=== PATIENT | female | born 1975 | race Caucasian/White ===

== ENCOUNTER → 2023-01-19 | Outpatient (CLI) | payer OTHER ==
[~2023-01-19] MED LIST: CEPH500 PO; CETI5 PO; CLIN300 PO; CYCL10 PO; DIAZ5 PO; FAMO20 PO; HYDACE10B PO; HYDACE5 PO; IBUP800 PO; MULVITA; NAPR500 PO; OXYACE5T PO; PRED20 PO; RXOXYACE PO
[2023-01-19 20:11] LABS: BASOPHILS ABSOLUTE AUTO 0.09 K/mm3 (0.00-0.23); BASOPHILS PERCENT AUTO 1 % (0-2); EOSINOPHILS ABSOLUTE AUTO 0.34 K/mm3 (0.00-0.68); EOSINOPHILS PERCENT AUTO 3 % (0-6); Hematocrit 47.9 % (33.0-51.0); Hemoglobin 16.4 g/dL (11.5-16.0); IMMATURE GRAN ABSOLUTE AUTO 0.02 K/mm3 (0.00-0.10); IMMATURE GRAN PERCENT AUTO 0 % (0-1); LYMPHOCYTES ABSOLUTE AUTO 2.86 K/mm3 (0.84-5.20); LYMPHOCYTES PERCENT AUTO 29 % (21-46); MONOCYTES ABSOLUTE AUTO 0.73 K/mm3 (0.16-1.47); MONOCYTES PERCENT AUTO 7 % (4-13); Mean Corpuscular HGB 36.2 pg (26.0-34.0); Mean Corpuscular HGB Conc 34.2 g/dL (31.5-36.5); Mean Corpuscular Volume 106 fL (80-100); Mean Platelet Volume 11.7 fL (9.1-12.4); NEUTROPHILS ABSOLUTE AUTO 5.92 K/mm3 (1.96-9.15); NEUTROPHILS PERCENT AUTO 60 % (41-73); Platelet Count 193 K/mm3 (150-400); RDW Coefficient Variation 12.7 % (11.7-14.2); RDW Standard Deviation 49.8 fL (35.1-46.3); Red Blood Cell Count 4.53 M/mm3 (3.80-5.20); White Blood Cell Count 9.96 K/mm3 (4.00-11.30)
[2023-01-19 22:49] LABS: Albumin, Blood 3.4 g/dL (3.4-5.0); Albumin/Globulin Ratio 0.8 (0.8-1.8); Bilirubin, Total 0.5 mg/dL (0.1-1.0); Bun/Creatinine Ratio 19.1 (12.0-20.0); Creatinine, Blood 0.73 mg/dL (0.40-1.00); Globulin, Blood 4.4 g/dL (2.2-4.0); Potassium, Blood 4.4 mmol/L (3.5-5.5); Total Protein, Blood 7.8 g/dL (6.4-8.2)
== END | disposition home or self-care (01) ==
LOC: LAB SHORT 16:18
PROVIDERS: Nurse Practitioner Family
DX: I10 Essential (primary) hypertension (principal)
CPT/HCPCS: 80053; 85025

== ENCOUNTER 2024-01-23 18:02 | Emergency (ER) | payer OTHER ==
[~2024-01-23] VITALS: Ht 160 cm; Wt 124.7 kg
[2024-01-23 18:12] VITALS: BP 177/105
[2024-01-23 19:32] LABS: BASOPHILS ABSOLUTE AUTO 0.14 K/mm3 (0.00-0.23); BASOPHILS PERCENT AUTO 1 % (0-2); EOSINOPHILS ABSOLUTE AUTO 0.36 K/mm3 (0.00-0.68); EOSINOPHILS PERCENT AUTO 2 % (0-6); Hematocrit 46.1 % (33.0-51.0); Hemoglobin 16.1 g/dL (11.5-16.0); IMMATURE GRAN ABSOLUTE AUTO 0.04 K/mm3 (0.00-0.10); IMMATURE GRAN PERCENT AUTO 0 % (0-1); LYMPHOCYTES ABSOLUTE AUTO 4.85 K/mm3 (0.84-5.20); LYMPHOCYTES PERCENT AUTO 32 % (21-46); MONOCYTES ABSOLUTE AUTO 1.06 K/mm3 (0.16-1.47); MONOCYTES PERCENT AUTO 7 % (4-13); Mean Corpuscular HGB 35.3 pg (26.0-34.0); Mean Corpuscular HGB Conc 34.9 g/dL (31.5-36.5); Mean Corpuscular Volume 101 fL (80-100); Mean Platelet Volume 10.5 fL (9.1-12.4); NEUTROPHILS ABSOLUTE AUTO 8.51 K/mm3 (1.96-9.15); NEUTROPHILS PERCENT AUTO 57 % (41-73); Platelet Count 170 K/mm3 (150-400); RDW Coefficient Variation 12.5 % (11.7-14.2); RDW Standard Deviation 46.8 fL (35.1-46.3); Red Blood Cell Count 4.56 M/mm3 (3.80-5.20); White Blood Cell Count 14.96 K/mm3 (4.00-11.30)
[2024-01-23 19:52] LABS: Albumin, Blood 3.5 g/dL (3.4-5.0); Albumin/Globulin Ratio 0.8 (0.8-1.8); Bilirubin, Total 0.4 mg/dL (0.1-1.0); Bun/Creatinine Ratio 17.9 (12.0-20.0); Calcium, Blood 8.9 mg/dL (8.5-10.1); Creatinine, Blood 0.78 mg/dL (0.40-1.00); Globulin, Blood 4.6 g/dL (2.2-4.0); Potassium, Blood 3.9 mmol/L (3.5-5.5); Total Protein, Blood 8.1 g/dL (6.4-8.2)
[2024-01-23 20:13] LABS: Source, Urine Clean Catch
[2024-01-23 20:15] LABS: Bilirubin, Urine Neg (Neg); Blood, Urine 5+ (Neg); Glucose Qualitative, Urine Neg (Neg); Ketones, Urine Neg (Neg); Leukocyte Esterase, Urine 3+ (Neg); Nitrite, Urine Pos (Neg); Protein, Urine 3+ (Neg); Urobilinogen, Urine NORM (Normal)
[2024-01-23 20:27] LABS: Appearance, Urine Cloudy (Clear); Color, Urine Yellow (P-Yellow); White Blood Cells, Urine 50-100 /hpf (0-5)
[2024-01-23 20:28] LABS: Bacteria Many /hpf; Squamous Epithelial Cells Mod /hpf (Few)
[2024-01-24] MEDS ORDERED: CEPH500 PO (00:40)
== END 2024-01-23 20:07 | disposition home or self-care (01) ==
LOC: ER 18:02
PROVIDERS: Physician Assistant; Student in an Organized Health Care Education/Training Program
DX: N39.0 Urinary tract infection, site not specified (principal); Z88.5 Allergy status to narcotic agent; Z88.0 Allergy status to penicillin; Z88.1 Allergy status to other antibiotic agents
CPT/HCPCS: 80053; 81001; 85025; 87077; 87086; 87186; 93971; 99284-25

== ENCOUNTER → 2024-04-08 | Outpatient (CLI) | payer OTHER ==
[2024-04-08 20:08] LABS: BASOPHILS ABSOLUTE AUTO 0.17 K/mm3 (0.00-0.23); BASOPHILS PERCENT AUTO 2 % (0-2); EOSINOPHILS ABSOLUTE AUTO 0.33 K/mm3 (0.00-0.68); EOSINOPHILS PERCENT AUTO 3 % (0-6); Hematocrit 47.2 % (33.0-51.0); IMMATURE GRAN ABSOLUTE AUTO 0.04 K/mm3 (0.00-0.10); IMMATURE GRAN PERCENT AUTO 0 % (0-1); LYMPHOCYTES ABSOLUTE AUTO 3.29 K/mm3 (0.84-5.20); LYMPHOCYTES PERCENT AUTO 29 % (21-46); MONOCYTES ABSOLUTE AUTO 0.84 K/mm3 (0.16-1.47); MONOCYTES PERCENT AUTO 7 % (4-13); Mean Corpuscular HGB 34.6 pg (26.0-34.0); Mean Corpuscular HGB Conc 33.9 g/dL (31.5-36.5); Mean Corpuscular Volume 102 fL (80-100); Mean Platelet Volume 11.5 fL (9.1-12.4); NEUTROPHILS ABSOLUTE AUTO 6.78 K/mm3 (1.96-9.15); NEUTROPHILS PERCENT AUTO 59 % (41-73); Platelet Count 167 K/mm3 (150-400); RDW Coefficient Variation 12.4 % (11.7-14.2); RDW Standard Deviation 47.3 fL (35.1-46.3); Red Blood Cell Count 4.63 M/mm3 (3.80-5.20); White Blood Cell Count 11.45 K/mm3 (4.00-11.30)
[2024-04-08 20:17] LABS: Albumin, Blood 3.5 g/dL (3.4-5.0); Albumin/Globulin Ratio 0.8 (0.8-1.8); Bilirubin, Total 0.4 mg/dL (0.1-1.0); Bun/Creatinine Ratio 18.6 (12.0-20.0); Calcium, Blood 9.4 mg/dL (8.5-10.1); Creatinine, Blood 0.64 mg/dL (0.40-1.00); Globulin, Blood 4.4 g/dL (2.2-4.0); Potassium, Blood 4.2 mmol/L (3.5-5.5); Total Protein, Blood 7.9 g/dL (6.4-8.2)
[2024-04-08 20:21] LABS: CHOL/HDL RATIO 3.9; Cholesterol 200 mg/dL (50-200); HDL Cholesterol 51 mg/dL (>39); LDL/HDL RATIO 2.3; Low Density Lipoprotein Chol 118 mg/dL (0-110); Triglycerides 157 mg/dL (30-160); Very Low Density Lipoprot Chol 31 mg/dL (6-32)
== END ==
LOC: LAB 17:00 → LAB SHORT 17:00
PROVIDERS: Nurse Practitioner Family
DX: I10 Essential (primary) hypertension (principal); R73.03 Prediabetes
CPT/HCPCS: 80053; 80061; 83036; 85025

== ENCOUNTER 2024-11-07 23:48 | Emergency (ER) | payer OTHER ==
[~2024-11-07] VITALS: Ht 172.7 cm; Wt 122.5 kg
[2024-11-07 23:58] VITALS: BP 164/103
[2024-11-08] MEDS ORDERED: DIAZ2 PO (02:44)
[2024-11-08] MEDS ORDERED: LIDO700A20 TOP (02:44)
[2024-11-08] MEDS ORDERED: Lidocaine 4% 1 Patch TOP ONE (02:45)
[2024-11-08] MEDS ORDERED: Ketorolac Tromethamine 30mg Vial IM ONE (02:45)
[2024-11-08] MEDS ORDERED: Diazepam 5 MG Tab PO ONE (02:45)
== END 2024-11-08 02:55 | disposition home or self-care (01) ==
LOC: ER 23:48
DX: S13.9XXA Sprain of joints and ligaments of unspecified parts of neck, initial encounter (principal); R63.5 Abnormal weight gain; V49.00XA Driver injured in collision with unspecified motor vehicles in nontraffic accident, initial encounter; Y92.481 Parking lot as the place of occurrence of the external cause; Z88.0 Allergy status to penicillin; Z88.1 Allergy status to other antibiotic agents; Z88.5 Allergy status to narcotic agent; Z79.899 Other long term (current) drug therapy
CPT/HCPCS: 96374; 99282-25; A9270; J1885

== ENCOUNTER → 2025-04-07 | Outpatient (CLI) | payer OTHER ==
[~2025-04-07] MED LIST changes: +DIAZ2 PO; +LIDO700A20 TOP
[2025-04-07 16:16] LABS: CHOL/HDL RATIO 3.5; Cholesterol 192 mg/dL (50-200); Follicle Stimulating Hormone 41.30 mIU/ml; HDL Cholesterol 55 mg/dL (>39); LDL/HDL RATIO 1.9; Low Density Lipoprotein Chol 105 mg/dL (0-110); Triglycerides 160 mg/dL (30-160); Very Low Density Lipoprot Chol 32 mg/dL (6-32)
[2025-04-07 16:45] LABS: Creatinine, Urine Random 79.8 mg/dL (27.00-270.00); Protein, Urine Random 31.2 mg/dL (0.0-11.9); Protein/Creat Ratio, Ur Random 0.4
== END ==
LOC: LAB 14:30 → LAB SHORT 14:30
PROVIDERS: General Practice
DX: I10 Essential (primary) hypertension (principal); N95.1 Menopausal and female climacteric states
CPT/HCPCS: 80061; 82570; 83001; 83002; 84156

== ENCOUNTER 2025-07-01 18:00 | Emergency (ER) | payer OTHER ==
[~2025-07-01] VITALS: Ht 170.2 cm; Wt 117.9 kg
[2025-07-01 19:16] LABS: BASOPHILS ABSOLUTE AUTO 0.23 K/mm3 (0.00-0.23); BASOPHILS PERCENT AUTO 2 % (0-2); EOSINOPHILS ABSOLUTE AUTO 0.36 K/mm3 (0.00-0.68); EOSINOPHILS PERCENT AUTO 3 % (0-6); Hematocrit 39.5 % (33.0-51.0); Hemoglobin 13.7 g/dL (11.5-16.0); IMMATURE GRAN ABSOLUTE AUTO 0.02 K/mm3 (0.00-0.10); IMMATURE GRAN PERCENT AUTO 0 % (0-1); LYMPHOCYTES ABSOLUTE AUTO 3.98 K/mm3 (0.84-5.20); LYMPHOCYTES PERCENT AUTO 35 % (21-46); MONOCYTES ABSOLUTE AUTO 0.72 K/mm3 (0.16-1.47); MONOCYTES PERCENT AUTO 6 % (4-13); Mean Corpuscular HGB Conc 34.7 g/dL (31.5-36.5); Mean Corpuscular Volume 104 fL (80-100); NEUTROPHILS ABSOLUTE AUTO 6.16 K/mm3 (1.96-9.15); NEUTROPHILS PERCENT AUTO 54 % (41-73); NRBC ABSOLUTE 0.00 K/mm3 (0.00-0.02); NRBC Auto 0.0 /100 WBC (0.0-0.2); Platelet Count 174 K/mm3 (150-400); RDW Coefficient Variation 14.9 % (11.7-14.2); RDW Standard Deviation 57.2 fL (35.1-46.3)
[2025-07-01 19:36] LABS: CORONAVIRUS COVID-19 AG Negative (NEGATIVE)
[2025-07-01 19:39] LABS: Alanine Aminotransfer (ALT/SGP 177.0 U/L (12-78); Albumin, Blood 3.2 g/dL (3.4-5.0); Albumin/Globulin Ratio 0.7 (0.8-1.8); Anion Gap 9.0 mmol/L (3-11); Aspartate Aminotrans (AST/SGOT 289.0 U/L (12-37); Bilirubin, Total 0.6 mg/dL (0.1-1.0); Blood Urea Nitrogen 16.0 mg/dL (8-24); CO2, Blood 21.0 mmol/L (21-32); Calcium, Blood 8.2 mg/dL (8.5-10.1); Chloride, Blood 112.0 mmol/L (98-108); Creatinine, Blood 0.94 mg/dL (0.40-1.00); Globulin, Blood 4.7 g/dL (2.2-4.0); Glucose, Blood 116.0 mg/dL (70-99); Potassium, Blood 3.9 mmol/L (3.5-5.5); Sodium, Blood 138.0 mmol/L (136-145); Total Protein, Blood 7.9 g/dL (6.4-8.2)
[2025-07-01 20:00] VITALS: BP 138/109
[2025-07-01] MEDS ORDERED: LORazepam 2 MG/ML 1ML Injection IV ONE (20:40)
[2025-07-02] MEDS ORDERED: PRINIVIL5 M1 (21:54)
[2025-07-02] MEDS ORDERED: Crestor40 MG (21:54)
[2025-07-02] MEDS ORDERED: IBUP800 PO (21:54)
[2025-07-02] MEDS ORDERED: KAPSPARGO SPRIN25 MG (21:54)
[2025-07-02] MEDS ORDERED: MELA3 PO (21:55)
[2025-07-02] MEDS ORDERED: ALBU90OI INH (21:55)
== END 2025-07-01 22:52 | disposition home or self-care (01) ==
LOC: ER 18:00
PROVIDERS: Student in an Organized Health Care Education/Training Program
DX: R06.02 Shortness of breath (principal); R07.9 Chest pain, unspecified; F41.9 Anxiety disorder, unspecified; R79.89 Other specified abnormal findings of blood chemistry; R10.13 Epigastric pain; R00.0 Tachycardia, unspecified; K76.0 Fatty (change of) liver, not elsewhere classified; Z53.29 Procedure and treatment not carried out because of patient's decision for other reasons; Z88.0 Allergy status to penicillin; Z88.5 Allergy status to narcotic agent; Z88.1 Allergy status to other antibiotic agents; Z79.899 Other long term (current) drug therapy
CPT/HCPCS: 71046; 74177; 80053; 83690; 83880; 84484; 85025; 85379; 87428-QW; 93005; 93010; 96374-59; 99285-25; J2060; Q9967

== ENCOUNTER 2025-07-02 20:05 | Inpatient (IN) | payer OTHER ==
[~2025-07-02] VITALS: Ht 172.7 cm; Wt 117.6 kg
[2025-07-02 20:53] LABS: Hematocrit 37.9 % (33.0-51.0); Hemoglobin 13.2 g/dL (11.5-16.0); Mean Corpuscular HGB Conc 34.8 g/dL (31.5-36.5); Mean Corpuscular Volume 104 fL (80-100); NRBC ABSOLUTE 0.00 K/mm3 (0.00-0.02); NRBC Auto 0.0 /100 WBC (0.0-0.2); Platelet Count 153 K/mm3 (150-400); RDW Coefficient Variation 15.0 % (11.7-14.2); RDW Standard Deviation 58.3 fL (35.1-46.3)
[2025-07-02 21:12] LABS: Alanine Aminotransfer (ALT/SGP 199.0 U/L (12-78); Albumin, Blood 3.3 g/dL (3.4-5.0); Albumin/Globulin Ratio 0.8 (0.8-1.8); Anion Gap 14.0 mmol/L (3-11); Aspartate Aminotrans (AST/SGOT 340.0 U/L (12-37); Bilirubin, Total 0.8 mg/dL (0.1-1.0); Blood Urea Nitrogen 16.0 mg/dL (8-24); CO2, Blood 18.0 mmol/L (21-32); Calcium, Blood 8.0 mg/dL (8.5-10.1); Chloride, Blood 109.0 mmol/L (98-108); Creatinine, Blood 1.58 mg/dL (0.40-1.00); Globulin, Blood 4.3 g/dL (2.2-4.0); Glucose, Blood 121.0 mg/dL (70-99); Potassium, Blood 3.8 mmol/L (3.5-5.5); Sodium, Blood 137.0 mmol/L (136-145); Total Protein, Blood 7.6 g/dL (6.4-8.2)
[2025-07-02 21:18] LABS: BASOPHILS ABSOLUTE MAN 0.00 K/mm3 (0.00-0.23); BASOPHILS PERCENT MAN 0 % (0-2); EOSINOPHILS ABSOLUTE MAN 0.34 K/mm3 (0.00-0.68); EOSINOPHILS PERCENT MAN 3 % (0-6); LYMPHOCYTES ABSOLUTE MAN 5.00 K/mm3 (0.84-5.20); LYMPHOCYTES PERCENT MAN 43 % (21-46); MONOCYTES ABSOLUTE MAN 0.34 K/mm3 (0.16-1.47); MONOCYTES PERCENT MAN 3 % (4-13); NEUTROPHILS ABSOLUTE MAN 5.93 K/mm3 (1.96-9.15); SEG NEUTROPHILS PERCENT MAN 51 % (41-73)
[2025-07-02] MEDS ORDERED: Crestor40 MG (21:54)
[2025-07-02] MEDS ORDERED: PRINIVIL5 M1 (21:54)
[2025-07-02] MEDS ORDERED: KAPSPARGO SPRIN25 MG (21:54)
[2025-07-02] MEDS ORDERED: IBUP800 PO (21:54)
[2025-07-02] MEDS ORDERED: ALBU90OI INH (21:55)
[2025-07-02] MEDS ORDERED: MELA3 PO (21:55)
[2025-07-02] MEDS ORDERED: LORazepam 2 MG/ML 1ML Injection IV PRN (23:40)
[2025-07-02] MEDS ORDERED: FLU VACC TS2025-26(6MOS UP)/PF 45 MCG/0.5 ML SYRINGE IM SCH (23:40)
[2025-07-02] MEDS ORDERED: Ketorolac Tromethamine 15mg Vial IV PRN (23:45)
[2025-07-02] MEDS ORDERED: Lidocaine 4% 1 Patch TOP PRN (23:45)
--- NOTE | 2025-07-03 00:19 | NUR ---
0020 - RECEIVED REPORT FROM BETTIE NGUYEN RN.
[2025-07-03 00:39] VITALS: BP 147/72
[2025-07-03] MEDS ORDERED: LORazepam 2 MG/ML 1ML Injection IV PRN (01:00)
--- NOTE | 2025-07-03 03:59 | NUR ---
HOSPITALIST NOTIFIED OF PT REQUESTING PAIN MEDICATIONS FOR SORE NECK. PT HAS UNSPECIFIED ALLERGIES TO MOST PAIN MEDS. HOSPITALIST ASSESSED PT TREMORS IN BUE AND ANXIETY, AND ORDERED TO GIVE 1 MG IV ATIVAN PER [facility] PROTOCOL. HOSPITALIST ALSO DISCUSSED WITH PT THAT DOING A CT PE STUDY DEPENDING ON KIDNEY FUNCTION AFTER AM LABS, AND IF KIDNEY FUNCTION HAS NOT IMPROVED POSSIBLE NEPHROLOGY CONSULT TO BE PLACED. PT IS AGREEABLE TO THIS PLAN.
[2025-07-03] MEDS ORDERED: Ketorolac Tromethamine 15mg Vial IV ONE (04:00)
[2025-07-03 04:43] VITALS: BP 127/53
[2025-07-03 05:15] LABS: BASOPHILS ABSOLUTE AUTO 0.12 K/mm3 (0.00-0.23); BASOPHILS PERCENT AUTO 1 % (0-2); EOSINOPHILS ABSOLUTE AUTO 0.21 K/mm3 (0.00-0.68); EOSINOPHILS PERCENT AUTO 3 % (0-6); Hematocrit 33.7 % (33.0-51.0); Hemoglobin 12.1 g/dL (11.5-16.0); IMMATURE GRAN ABSOLUTE AUTO 0.03 K/mm3 (0.00-0.10); IMMATURE GRAN PERCENT AUTO 0 % (0-1); LYMPHOCYTES ABSOLUTE AUTO 2.59 K/mm3 (0.84-5.20); LYMPHOCYTES PERCENT AUTO 31 % (21-46); MONOCYTES ABSOLUTE AUTO 0.59 K/mm3 (0.16-1.47); MONOCYTES PERCENT AUTO 7 % (4-13); Mean Corpuscular HGB Conc 35.9 g/dL (31.5-36.5); Mean Corpuscular Volume 103 fL (80-100); NEUTROPHILS ABSOLUTE AUTO 4.95 K/mm3 (1.96-9.15); NEUTROPHILS PERCENT AUTO 58 % (41-73); NRBC ABSOLUTE 0.00 K/mm3 (0.00-0.02); NRBC Auto 0.0 /100 WBC (0.0-0.2); Platelet Count 112 K/mm3 (150-400); RDW Coefficient Variation 14.7 % (11.7-14.2); RDW Standard Deviation 56.0 fL (35.1-46.3)
[2025-07-03 05:21] LABS: Alanine Aminotransfer (ALT/SGP 198.0 U/L (12-78); Albumin, Blood 2.7 g/dL (3.4-5.0); Albumin/Globulin Ratio 0.7 (0.8-1.8); Anion Gap 14.0 mmol/L (3-11); Aspartate Aminotrans (AST/SGOT 344.0 U/L (12-37); Bilirubin, Total 0.7 mg/dL (0.1-1.0); Blood Urea Nitrogen 19.0 mg/dL (8-24); CO2, Blood 21.0 mmol/L (21-32); Calcium, Blood 7.6 mg/dL (8.5-10.1); Chloride, Blood 106.0 mmol/L (98-108); Creatinine, Blood 1.91 mg/dL (0.40-1.00); Globulin, Blood 4.0 g/dL (2.2-4.0); Glucose, Blood 91.0 mg/dL (70-99); Potassium, Blood 3.5 mmol/L (3.5-5.5); Sodium, Blood 137.0 mmol/L (136-145); Total Protein, Blood 6.7 g/dL (6.4-8.2)
--- NOTE | 2025-07-03 05:38 | NUR ---
SHIFT SUMMARY: PT IS AOX3, AMBULATES INDEPENDENTLY, AND MAKES NEEDS KNOWN. SHE UTILIZES THE CALL LIGHT APPROPRIATELY AND IS RECEPTIVE TO CARE. DESPITE REPORTING SEVERE PAIN, SHE HAS REMAINED FRIENDLY AND COOPERATIVE. SHE HAS SOME S/SX OF ALCOHOL WITHDRAWAL AND WAS TREATED PER THE [facility] FOR ANXIETY AND CHEST, NECK, BACK, AND HEADACHE PAIN. NO ACUTE EVENTS. SHE IS CURRENTLY ASLEEP, BEDSIDE TABLE AND CALL LIGHT ARE WITHIN REACH.
[2025-07-03 07:41] VITALS: BP 113/42
[2025-07-03] MEDS ORDERED: Enoxaparin 40 MG/0.4 ML SYR SC SCH (09:00)
[2025-07-03 15:29] VITALS: BP 145/75
[2025-07-03 16:20] LABS: Campylobacter Sp Not Detected (NOT DETECT); E. Coli O157 Not Detected (NOT DETECT); Enteroaggregative E. coli-EAEC Not Detected (NOT DETECT); Enteropathogenic E. coli-EPEC Not Detected (NOT DETECT); Enterotoxigenic E. coli-ETEC Not Detected (NOT DETECT); Salmonella Sp Not Detected (NOT DETECT); Shiga Toxin-prod E. coli-STEC Not Detected (NOT DETECT); Shigella/Enteroin E. coli-EIEC Not Detected (NOT DETECT); Vibrio Sp Not Detected (NOT DETECT)
--- NOTE | 2025-07-03 18:42 | NUR ---
END OF SHIFT NOTE PATIENT RESTING IN BED. A&O4, IND IN ROOM, BED IN LOWEST POSITION, CALL LIGHT IN REACH. PATIENT CIWA 12-15 TODAY, TREATED PER EMAR. MINIMAL APPITITE. PATIENT DESIRES TO D/C TOMORROW, PATIENT VERABLIZES PLAN TO CONTINUE DRINKNING AND DECLINES ASSISTANCE AT THIS TIME. UNDERSTANDS HOW AND WHERE TO GET SUPPORT AND ASSISTANCE, PATIENT IS AN EMPLOYEE OF [employer]. IV INFUSING TO ORDER, STOOL SAMPLE SENT. NO OTHER CONCERNS AT THIS TIME
[2025-07-03 19:23] VITALS: BP 157/81
[2025-07-03 23:19] VITALS: BP 164/95
--- NOTE | 2025-07-04 01:57 | NUR ---
TRANSFER OF CARE REPORT GIVEN TO RN'S NOHEMI MCGHEE AND MARIO PARHAM, WHO WILL BE ASSUMING CARE OF PT AT THIS TIME.
--- NOTE | 2025-07-04 02:00 | NUR ---
Assumed Care Assumed care from AUSTEN Yun. Patient is AO x 4. Ad dwayne to bathroom. CIWA 11, c/o lower back pain w/ hx of lumbar surgery. Medicated per EMAR for pain and elevated CIWA. Also c/o diarrhea. LR @ 150 infusing at this time. Call light nearby. Bed in lowest position. Calling appropriately for needs. WCTM.
[2025-07-04 04:45] VITALS: BP 164/92
[2025-07-04 05:01] LABS: BASOPHILS ABSOLUTE AUTO 0.07 K/mm3 (0.00-0.23); BASOPHILS PERCENT AUTO 1 % (0-2); EOSINOPHILS ABSOLUTE AUTO 0.23 K/mm3 (0.00-0.68); EOSINOPHILS PERCENT AUTO 4 % (0-6); Hematocrit 33.5 % (33.0-51.0); Hemoglobin 11.6 g/dL (11.5-16.0); IMMATURE GRAN ABSOLUTE AUTO 0.01 K/mm3 (0.00-0.10); IMMATURE GRAN PERCENT AUTO 0 % (0-1); LYMPHOCYTES ABSOLUTE AUTO 1.99 K/mm3 (0.84-5.20); LYMPHOCYTES PERCENT AUTO 32 % (21-46); MONOCYTES ABSOLUTE AUTO 0.36 K/mm3 (0.16-1.47); MONOCYTES PERCENT AUTO 6 % (4-13); Mean Corpuscular HGB Conc 34.6 g/dL (31.5-36.5); Mean Corpuscular Volume 105 fL (80-100); NEUTROPHILS ABSOLUTE AUTO 3.50 K/mm3 (1.96-9.15); NEUTROPHILS PERCENT AUTO 57 % (41-73); NRBC ABSOLUTE 0.00 K/mm3 (0.00-0.02); NRBC Auto 0.0 /100 WBC (0.0-0.2); Platelet Count 96 K/mm3 (150-400); RDW Coefficient Variation 14.3 % (11.7-14.2); RDW Standard Deviation 55.5 fL (35.1-46.3)
[2025-07-04 05:36] LABS: Alanine Aminotransfer (ALT/SGP 190.0 U/L (12-78); Albumin, Blood 2.8 g/dL (3.4-5.0); Albumin/Globulin Ratio 0.7 (0.8-1.8); Anion Gap 8.0 mmol/L (3-11); Aspartate Aminotrans (AST/SGOT 284.0 U/L (12-37); Bilirubin, Total 1.5 mg/dL (0.1-1.0); Blood Urea Nitrogen 17.0 mg/dL (8-24); CO2, Blood 23.0 mmol/L (21-32); Calcium, Blood 8.0 mg/dL (8.5-10.1); Chloride, Blood 113.0 mmol/L (98-108); Creatinine, Blood 1.5 mg/dL (0.40-1.00); Globulin, Blood 4.1 g/dL (2.2-4.0); Glucose, Blood 102.0 mg/dL (70-99); Potassium, Blood 3.8 mmol/L (3.5-5.5); Sodium, Blood 140.0 mmol/L (136-145); Total Protein, Blood 6.9 g/dL (6.4-8.2)
--- NOTE | 2025-07-04 05:37 | NUR ---
Shift Summary CIWA 05/14 at 0200 and 0400, medicated per EMAR. Patient is wanting to go home today, but still having diarrhea. Discussed detrimental effects of prolong and ongoing diarrhea (JULIAN, electrolyte disturbances, dangerous arrhythmias) as seen currently w/ this admission hence the reason for her telemetry monitoring and continuous IV fluids. Patient was not aware that persistent diarrhea can effect her heart and kidneys the way it did; however, maintains her desire to go home nonetheless. Has been pleasant. AOx4. Ad dwayne.
[2025-07-04 08:00] VITALS: BP 155/90
[2025-07-04] MEDS ORDERED: Folic Acid 1 MG TAB PO SCH (09:00)
--- NOTE | 2025-07-04 16:01 | NUR ---
NOTE PT ALERT. COOPERATIVE WITH CARE. PT BEING JEFFREY ABOUT NOT WANTING TO STOP DRINKING BLACK VELVET. GABAPENTIN STARTED. VSS. UP TO BATHROOM WITH IV POLE. SHE IS COMPLAINING THAT SHE PEEING A LOT. PT C/O OF NAUSEA. OFFERED CRACKERS AND JELLO. SHE STATED THAT IT HELPED. HER SON WENT TO [employer] TO GET HER A CHEESE BURGER. SHE DIDN'T WANT THAT EITHER. TALKED WITH DR SILVA. JACOB AND INCREASED DOSE OF GABAPENTIN ORDERED.
[2025-07-04] MEDS ORDERED: Albuterol HFA200 ACT/6.7 GM INH INH PRN (16:05)
[2025-07-04 16:06] VITALS: BP 157/96
[2025-07-04] MEDS ORDERED: Ondansetron HCl 2 MG / ML 2ML Vial IV PRN (16:10)
[2025-07-04 19:18] VITALS: BP 143/87
--- NOTE | 2025-07-04 21:44 | NUR ---
PROVIDER CALL- CALL TO HCP. VERBAL OK TO ENTER HOME MEDICATIONS LOSARTAN 100MG PO QD AND CRESTOR 40MG PO QD. ORDERS ENTERED.
[2025-07-05 00:12] VITALS: BP 147/89
[2025-07-05 04:48] VITALS: BP 156/82
--- NOTE | 2025-07-05 05:52 | NUR ---
Shift Summary - Events: CIWA score of 13, 6 and 4; no intervention required. Patient reports a headache and clammy skin but is otherwise resting in bed with eyes closed. Respirations are even and unlabored. - Orientation: A/Ox4. - Ambulation: Independent. - Medication: Taken whole with water. - Toileting: Continent x2.
--- NOTE | 2025-07-05 06:19 | NUR ---
Weak legs/ urinary urgency: The patient notified me of leg tremors and a concern that she cannot reach the bathroom in time due to the IV pole. In response, I have moved the bedside commode closer to her while we determine if IV fluids are still required. I will relay these symptoms to the day shift nurse to discuss further with the provider.
[2025-07-05 06:23] LABS: Alanine Aminotransfer (ALT/SGP 145.0 U/L (12-78); Albumin, Blood 2.6 g/dL (3.4-5.0); Albumin/Globulin Ratio 0.7 (0.8-1.8); Anion Gap 8.0 mmol/L (3-11); Aspartate Aminotrans (AST/SGOT 168.0 U/L (12-37); Bilirubin, Total 1.7 mg/dL (0.1-1.0); Blood Urea Nitrogen 10.0 mg/dL (8-24); CO2, Blood 24.0 mmol/L (21-32); Calcium, Blood 8.5 mg/dL (8.5-10.1); Chloride, Blood 112.0 mmol/L (98-108); Creatinine, Blood 1.14 mg/dL (0.40-1.00); Globulin, Blood 3.8 g/dL (2.2-4.0); Glucose, Blood 143.0 mg/dL (70-99); Potassium, Blood 3.5 mmol/L (3.5-5.5); Sodium, Blood 140.0 mmol/L (136-145); Total Protein, Blood 6.4 g/dL (6.4-8.2)
[2025-07-05 07:51] VITALS: BP 150/75
[2025-07-05 12:44] LABS: U Amphetamine Screen Not Detected; U Barbiturate Screen Not Detected; U Benzodiazapine Screen DETECTED; U Buprenorphine Screen Not Detected; U Cannabinoids Screen Not Detected; U Cocaine Screen Not Detected; U Methadone Screen Not Detected; U Methamphetamine Screen Not Detected; U Opiates Screen Not Detected; U Oxycodone Screen Not Detected; U Phencyclidine Screen Not Detected
--- NOTE | 2025-07-05 13:34 | NUR ---
PT TO OR AT APPROX 1250.
[2025-07-05 17:09] VITALS: BP 156/95
[2025-07-05] MEDS ORDERED: FOLI1 PO (18:16)
[2025-07-05] MEDS ORDERED: GABA300 PO (18:16)
[2025-07-05] MEDS ORDERED: B-1100 M1 PO (18:17)
--- NOTE | 2025-07-05 18:38 | NUR ---
DISCHARGE NOTE PT D/C HOME. PT PROVIDED W/ VERBAL AND WRITTEN INSTRUCTIONS AND REPORTED UNDERSTANDING. PT A&OX4, VSS, AMB W/ SBA, TOLERATING PO, VOIDING, AND DENIED PAIN. BELONGINGS WERE RETURNED AND PT ESCOURTED OUT VIA W/C BY LEMUEL NAVA.
== END 2025-07-05 18:38 | disposition home or self-care (01) | DRG 897 ==
LOC: ER 20:05 → MEDS 20:06
PROVIDERS: Emergency Medicine; ADMIT Student in an Organized Health Care Education/Training Program
DX: F10.130 Alcohol abuse with withdrawal, uncomplicated (principal); N17.9 Acute kidney failure, unspecified; I10 Essential (primary) hypertension; F32.A Depression, unspecified; R73.03 Prediabetes; F17.210 Nicotine dependence, cigarettes, uncomplicated; R07.89 Other chest pain; G89.29 Other chronic pain; J06.9 Acute upper respiratory infection, unspecified; K76.0 Fatty (change of) liver, not elsewhere classified; R00.0 Tachycardia, unspecified; E66.9 Obesity, unspecified; R19.7 Diarrhea, unspecified; K76.89 Other specified diseases of liver; E86.0 Dehydration; Z86.19 Personal history of other infectious and parasitic diseases; Z90.49 Acquired absence of other specified parts of digestive tract; Z88.0 Allergy status to penicillin; Z88.5 Allergy status to narcotic agent; Z88.8 Allergy status to other drugs, medicaments and biological substances; Z79.899 Other long term (current) drug therapy
CPT/HCPCS: 36415; 71045; 80053; 84484; 85025; 87507; 93005; 93010; 99285-25; A9270; G0378; J1650; J1885; J2060; J3411; J7120